=== PATIENT | male | born 1980 | race African-American/Black ===

== ENCOUNTER 2020-03-25 20:26 | Emergency (ER) | payer BC ==
[2020-03-25 20:32] VITALS: TEMP 98.5
[2020-03-25] MEDS ORDERED: PROPARACAINE 0.5% OPHTH DROPS 15 ML BTL RIGHT EYE STA (20:33)
[2020-03-25] MEDS: FLUORESCEIN STRIPS 1 MG STRIP BOTH EYES STA (20:41)
--- NOTE | 2020-03-25 20:59 | ED ---
Eye Problem HPI - General Source: patient, RN notes reviewed, old records reviewed Mode of arrival: ambulatory Limitations: no limitations <Kat Chawla - Last Filed: 03/25/20 21:33> <John Hawk - Last Filed: 03/25/20 21:55> - General Chief complaint: Eye Problems Stated complaint: Object in right eye Time Seen by Provider: 03/25/20 20:33 - History of Present Illness Initial comments: Patient is a 40-year-old male who presents emergency department today with chief complaint of wood stuck within his right eye. Patient reports that he is pulling up floor reports and a splinter flew into his eye. Patient states that he initially had pain but he thought it came out. When he returned home his noticed the piece of wood still stuck in the eye. Patient denies any significant pain with eye movements. Patient states that his visual acuity seems to be intact. The Patient states that he did not attempt to remove the wood but when he was informed of this he came directly to the emergency room. (Kat Chawla) - Related Data Home Medications Medication Instructions Recorded Confirmed Atorvastatin [Lipitor] 10 mg PO DAILY 12/04/14 01/11/15 Previous Rx's Medication Instructions Recorded Cephalexin [Keflex] 500 mg PO Q8HR #28 cap 03/25/20 Ciprofloxacin Ophth Soln [Cipro 1 drops RIGHT EYE Q4HR #1 bottle 03/25/20 Ophth Soln] Allergies Allergy/AdvReac Type Severity Reaction Status Date / Time No Known Allergies Allergy Verified 03/25/20 20:32 Review of Systems ROS Other: All systems not noted in ROS Statement are negative. <Kat Chawla - Last Filed: 03/25/20 21:33> ROS Other: All systems not noted in ROS Statement are negative. <John Hawk - Last Filed: 03/25/20 21:55> ROS Statement: Those systems with pertinent positive or pertinent negative responses have been documented in the HPI. Past Medical History Past Medical History: Hyperlipidemia Additional Past Medical History / Comment(s): history of chest pain with stress tests down last about 2009 History of Any Multi-Drug Resistant Organisms: None Reported Past Surgical History: No Surgical Hx Reported Past Psychological History: No Psychological Hx Reported Smoking Status: Never smoker Past Alcohol Use History: Daily, Occasional Past Drug Use History: None Reported <aKt Chawla - Last Filed: 03/25/20 21:33> General Exam Limitations: no limitations General appearance: alert, in no apparent distress Head exam: Present: atraumatic, normocephalic, normal inspection Eye exam: Present: EOMI, conjunctival injection (Napoles has conjunctival injection over the right eye. There is evidence of an obvious foreign body between the pupil and sclera at the 5 o'clock position. Patient has a teardrop shaped pupil pointing in direction of retained piece of wood. ), other (Visual acuity is 20/15 bilaterally. 20/25 on the right eye. 20/20 on the left eye. Patient wears glasses only for reading. ). Absent: normal appearance, PERRL (Patient has teardrop shaped pupil on the right eye with the points of the teardrops towards the 5 o'clock position.), scleral icterus, periorbital swelling ENT exam: Present: normal exam, mucous membranes moist Neck exam: Present: normal inspection. Absent: tenderness, meningismus, lymphadenopathy Respiratory exam: Present: normal lung sounds bilaterally. Absent: respiratory distress, wheezes, rales, rhonchi, stridor Cardiovascular Exam: Present: regular rate, normal rhythm, normal heart sounds. Absent: systolic murmur, diastolic murmur, rubs, gallop, clicks GI/Abdominal exam: Present: soft, normal bowel sounds. Absent: distended, tenderness, guarding, rebound, rigid Extremities exam: Present: normal inspection, full ROM, normal capillary refill. Absent: tenderness, pedal edema, joint swelling, calf tenderness Back exam: Present: normal inspection Neurological exam: Present: alert, oriented X3, CN II-XII intact Psychiatric exam: Present: normal affect, normal mood Skin exam: Present: warm, dry, intact, normal color. Absent: rash <Kat Chawla - Last Filed: 03/25/20 21:33> - General Exam Comments Initial Comments: 40-year-old male. Alert and oriented 3. Resting in bed. No distress. (Kat Chawla) Course <Kat Chawla - Last Filed: 03/25/20 21:33> <John Hawk - Last Filed: 03/25/20 21:55> Vital Signs 03/25/20 20:27 Temperature 98.5 F Pulse Rate 68 Respiratory 18 Rate Blood Pressure 141/78 O2 Sat by Pulse 98 Oximetry - Reevaluation(s) Reevaluation #1: 03/25/20 20:58 Patient is refusing tetanus shot. Patient states case is discussed with Dr. NOLAND and he evaluated Patient concern for a globe rupture due to teardrop shaped pupil and positive Juan Carlos sign. Patient had I she'll place. Currently awaiting call for osteologist Dr. Beltran (Kat Chawla) Reevaluation #2: 03/25/20 21:19 I discussed case with Dr. Ramos he recommended transfer to [facility]. I went to discuss the transfer with the Patient and he is reluctant to transfer. (Kat Chawla) Reevaluation #3: 03/25/20 21:54 PA supervision: I proceeded [id number] evaluation the patient he did present with complaints of right eye pain and did appear on exam to have evidence of a retained foreign body as well as irregular pupil which would indicate a global rupture. Ophthalmology on-call suggested outpatient follow-up at [facility]. Patient is refusing at this time. He does demo nstrate decision making capacity but does not want to go today. He will be given antibiotics as well as instructions on how to get to that facility. He will be discharged AGAINST MEDICAL ADVICE. (John Hawk) Medical Decision Making <Kat Chwala - Last Filed: 03/25/20 21:33> - Medical Decision Making 40-year-old male presents to return today with complaints of foreign body within the right eye. Patient had evidence of concern for globe rupture with a teardrop shaped pupil of the 5 o'clock position with a piece of wood within the eye. I discussed case promptly with ophthalmology and they recommended transfer to [facility]. Patient was then refusing transfer stating he doesn't want to go and doesnt want to worry his . I have multiple providers tried to convince the Patient to be transferred to a higher level care facility however he continues to refuse. Refuse tetanus vaccine. I discussed the risks of losing his vision and having severe infection with the eyeball. is in the right state of mind, and is coherent to make this decision. Patient states that he understands his risks and prefers to go home. I did discuss with Patient he can drive to [facility] as recommendation for further care. Patient will be given antibiotics and drops for infection prophylaxis despite leaving AGAINST MEDICAL ADVICE. (Kat Chawla) Disposition Is patient prescribed a controlled substance at d/c from ED?: No Time of Disposition: 21:39 <Kat Chawla - Last Filed: 03/25/20 21:33> <John Hawk - Last Filed: 03/25/20 21:55> Clinical Impression: Eye foreign body, Ruptured globe Disposition: Left Against Medical Advice Condition: Stable Instructions (If sedation given, give patient instructions): Eye Foreign Body (ED) Additional Instructions: You're leaving the hospital AGAINST MEDICAL ADVICE. I would recommend be transferred to a higher level of care such as [facility] for eye surgery tonight. you have been given the directions. Avoid pressure on the eyeball. You understand you are taking the have the risk of losing your vision and severe infection within the right eye. Patient can take antibiotic prescribed. Prescriptions: Ciprofloxacin Ophth Soln [Cipro Ophth Soln] 1 drops RIGHT EYE Q4HR #1 bottle Cephalexin [Keflex] 500 mg PO Q8HR #28 cap Referrals: Natalie Mcguire MD [Primary Care Provider] - 1-2 days
[2020-03-25 21:55] VITALS: BP 135/81; PULSE 83; RESP 14
== END 2020-03-25 21:50 | disposition left against medical advice (07) ==
LOC: EC 20:26
DX: S05.31XA Ocular laceration without prolapse or loss of intraocular tissue, right eye, initial encounter (principal); E78.5 Hyperlipidemia, unspecified; Z79.899 Other long term (current) drug therapy; Z53.29 Procedure and treatment not carried out because of patient's decision for other reasons; W45.8XXA Other foreign body or object entering through skin, initial encounter; Y93.89 Activity, other specified; Y92.009 Unspecified place in unspecified non-institutional (private) residence as the place of occurrence of the external cause
CPT/HCPCS: 99283

== ENCOUNTER 2020-05-22 13:45 | Emergency (ER) | payer BC ==
--- NOTE | 2020-05-22 14:21 | ED ---
Extremity Problem HPI - General Chief complaint: Extremity Problem,Nontraumatic Stated complaint: Lft arm pain Time Seen by Provider: 05/22/20 14:01 Source: patient, RN notes reviewed Mode of arrival: ambulatory Limitations: no limitations - History of Present Illness Initial comments: 40-year-old male presents emergency Department with chief complaint of pain, swelling to left forearm. Patient had an IV 2 months ago states that shortly after he developed redness swelling. Patient states that the redness is gone away but states it's bruise, swollen he can feel some commands arm. Patient denies any numbness or tingling no weakness. No history of PE or DVT. - Related Data Home Medications Medication Instructions Recorded Confirmed Atorvastatin [Lipitor] 10 mg PO DAILY 12/04/14 01/11/15 Previous Rx's Medication Instructions Recorded Cephalexin [Keflex] 500 mg PO Q8HR #28 cap 03/25/20 Ciprofloxacin Ophth Soln [Cipro 1 drops RIGHT EYE Q4HR #1 bottle 03/25/20 Ophth Soln] Allergies Allergy/AdvReac Type Severity Reaction Status Date / Time No Known Allergies Allergy Verified 05/22/20 13:51 Review of Systems ROS Statement: Those systems with pertinent positive or pertinent negative responses have been documented in the HPI. ROS Other: All systems not noted in ROS Statement are negative. Past Medical History Past Medical History: Hyperlipidemia Additional Past Medical History / Comment(s): history of chest pain with stress tests down last about 2009 History of Any Multi-Drug Resistant Organisms: None Reported Past Surgical History: No Surgical Hx Reported Past Psychological History: No Psychological Hx Reported Smoking Status: Never smoker Past Alcohol Use History: Daily, Occasional Past Drug Use History: None Reported General Exam Limitations: no limitations General appearance: alert, in no apparent distress Head exam: Present: atraumatic, normocephalic, normal inspection Eye exam: Present: normal appearance, PERRL, EOMI. Absent: scleral icterus, conjunctival injection, periorbital swelling Respiratory exam: Present: normal lung sounds bilaterally. Absent: respiratory distress, wheezes, rales, rhonchi, stridor Cardiovascular Exam: Present: regular rate, normal rhythm, normal heart sounds. Absent: systolic murmur, diastolic murmur, rubs, gallop, clicks Extremities exam: Present: other (Left forearm there is ecchymosis, swelling noted just distal to the antecubital fossa, radial pulses equal bilaterally, cap refill less than 2 seconds.) Course Vital Signs 05/22/20 13:48 Temperature 98.5 F Pulse Rate 67 Respiratory 20 Rate Blood Pressure 163/82 O2 Sat by Pulse 100 Oximetry Medical Decision Making - Medical Decision Making Ultrasound shows evidence of superficial thrombophlebitis. Patient will be started on anti-inflammatories, warm compresses. Patient has no evidence of DVT. Patient be discharged in stable condition return parameters were discussed.. case discussed with Disposition Clinical Impression: Superficial thrombophlebitis of left upper extremity Disposition: HOME SELF-CARE Condition: Stable Instructions (If sedation given, give patient instructions): Superficial Thrombophlebitis (ED) Additional Instructions: Apply warm compresses as directed and take anti-inflammatories as directed.Please return to the Emergency Department if symptoms worsen or any other concerns. Is patient prescribed a controlled substance at d/c from ED?: No Referrals: Natalie Mcguire MD [Primary Care Provider] - 1-2 days Time of Disposition: 15:16
--- NOTE | 2020-05-22 14:52 | US ---
EXAMINATION TYPE: US venous doppler duplex UE LT DATE OF EXAM: 05/22/2020 COMPARISON: NONE CLINICAL HISTORY: pain. Pain in left forearm at IV site from previous surgery 2 months ago SIDE PERFORMED: Left Left Arm: Appears negative for DVT Scanned left forearm at patient's area of concern: thrombus seen within superficial vessel IMPRESSION: No evidence for DVT at this time.
[2020-05-22 15:24] VITALS: BP 119/85; PULSE 57; RESP 16; TEMP 98
== END 2020-05-22 15:24 | disposition home or self-care (01) ==
LOC: EC 13:45
DX: I80.8 Phlebitis and thrombophlebitis of other sites (principal); E78.5 Hyperlipidemia, unspecified; Z79.899 Other long term (current) drug therapy
CPT/HCPCS: 99283

== ENCOUNTER → 2020-06-04 | Outpatient (CLI) | payer BC | END | disposition home or self-care (01) | LOC: LABWHC1 15:39 | PROVIDERS: ATTEND Emergency Medicine | DX: Z20.822 Contact with and (suspected) exposure to COVID-19 (principal) | CPT/HCPCS: U0003; C9803 ==

== ENCOUNTER 2022-04-22 00:17 | Emergency (ER) | payer OTHER ==
[2022-04-22 00:25] VITALS: TEMP 97.4
[2022-04-22] MEDS ORDERED: ONDANSETRON 4 MG/2 ML VIAL IVP STA (00:35)
[2022-04-22] MEDS ORDERED: SODIUM CHLORIDE 0.9% 1,000 ML IV STA ×2 (00:35)
[2022-04-22] MEDS ORDERED: PANTOPRAZOLE 40 MG/10 ML VIAL IVP STA (00:35)
[2022-04-22] MEDS ORDERED: MORPHINE SULFATE 4 MG/ML SYRINGE IVP STA (00:36)
--- NOTE | 2022-04-22 00:36 | ED ---
Abdominal Pain HPI - General Chief Complaint: Abdominal Pain Stated Complaint: Abdominal pain Time Seen by Provider: 04/22/22 00:35 Source: patient, RN notes reviewed, old records reviewed Mode of arrival: ambulatory Limitations: no limitations - History of Present Illness Initial Comments: This 42-year-old male to the emergency department for evaluation positive for bowel pain. Positive nausea no current active vomiting of travel show sick contacts no fevers. Patient does admit to one episode of vomiting no abdominal pain no travel history no sick contacts no fevers. No recent surgery or other complaints. Symptoms throughout the day progressively worsening MD Complaint: abdominal pain -: hour(s) Location: diffuse Radiation: epigastric, suprapubic Migration to: no migration, epigastric, suprapubic Severity: moderate Severity scale (1-10): 4 Quality: cramping, aching Consistency: intermittent Improves With: nothing Worsens With: nothing Context: other (0) Associated Symptoms: nausea Treatments Prior to Arrival: other (0) - Related Data Home Medications Medication Instructions Recorded Confirmed Atorvastatin [Lipitor] 10 mg PO DAILY 12/04/14 01/11/15 Previous Rx's Medication Instructions Recorded Cephalexin [Keflex] 500 mg PO Q8HR #28 cap 03/25/20 Ciprofloxacin Ophth Soln [Cipro 1 drops RIGHT EYE Q4HR #1 bottle 03/25/20 Ophth Soln] Allergies Allergy/AdvReac Type Severity Reaction Status Date / Time No Known Allergies Allergy Verified 04/22/22 00:22 Review of Systems ROS Statement: Those systems with pertinent positive or pertinent negative responses have been documented in the HPI. ROS Other: All systems not noted in ROS Statement are negative. Past Medical History Past Medical History: Hyperlipidemia Additional Past Medical History / Comment(s): history of chest pain with stress tests down last about 2009 History of Any Multi-Drug Resistant Organisms: None Reported Past Surgical History: No Surgical Hx Reported Past Psychological History: No Psychological Hx Reported Smoking Status: Never smoker Past Alcohol Use History: Daily Past Drug Use History: None Reported General Exam Limitations: no limitations General appearance: alert, in no apparent distress Head exam: Present: atraumatic, normocephalic, normal inspection Eye exam: Present: normal appearance, PERRL, EOMI. Absent: scleral icterus, conjunctival injection, periorbital swelling ENT exam: Present: normal exam, mucous membranes moist Neck exam: Present: normal inspection. Absent: tenderness, meningismus, lymphadenopathy Respiratory exam: Present: normal lung sounds bilaterally. Absent: respiratory distress, wheezes, rales, rhonchi, stridor Cardiovascular Exam: Present: regular rate, normal rhythm, normal heart sounds. Absent: systolic murmur, diastolic murmur, rubs, gallop, clicks GI/Abdominal exam: Present: soft, normal bowel sounds. Absent: distended, tenderness, guarding, rebound, rigid Extremities exam: Present: normal inspection, full ROM, normal capillary refill. Absent: tenderness, pedal edema, joint swelling, calf tenderness Back exam: Present: normal inspection Neurological exam: Present: alert, oriented X3, CN II-XII intact Psychiatric exam: Present: normal affect, normal mood Skin exam: Present: warm, dry, intact, normal color. Absent: rash Course Vital Signs 04/22/22 04/22/22 00:22 03:00 Temperature 97.4 F L Pulse Rate 95 108 H Respiratory 18 16 Rate Blood Pressure 138/99 136/101 O2 Sat by Pulse 100 99 Oximetry - Reevaluation(s) Reevaluation #1: 04/22/22 Medical record is reviewed Reevaluation #2: 04/22/22 Patient symptoms are improved here in the ER Reevaluation #3: 04/22/22 Patient informed results and questions answered Reevaluation #4: 04/22/22 Differential Abdominal Pain Men: Appendicitis, cholecystitis, diverticulosis, ischemic bowel, pancreatitis, hepatitis, UTI, gastroenteritis, AAA, incarcerated hernia, bowel obstruction, constipation, inflammatory bowel, hepatitis, peptic ulcer disease, splenic infarction, perforated viscus, testicular torsion, this is not meant to be an all-inclusive list Reevaluation #5: 04/22/22 Was pt. sent in by a medical professional or institution? @ -no Did you speak to anyone other than the patient for history? @ -no Did you review nursing and triage notes? @ -agree Were old charts reviewed? @ -no Differential Diagnosis? @ -no EKG interpreted by me (3pts min.)? @ -[none] X-rays interpreted by me (1pt min.)? @ -[none] CT interpreted by me (1pt min.)? @ -[none] U/S interpreted by me (1pt. min.)? @ -[none] What testing was considered but not performed? (CT, X-rays, U/S, labs)? Why? @ no What meds were considered but not given? Why? @ -[none] Did you discuss the management of the patient with other professionals? @ -no Did you reconcile home meds? @ -[none] Was smoking cessation discussed for >3mins.? @ -[none] Was critical care preformed (if so, how long)? @ -[none] Were there social determinants of health that impacted care today? How? (Homelessness, low income, unemployed, alcoholism, drug addiction, trans portation, low edu. Level, literacy, decrease access to med. care, long term, rehab)? @ -no Was there de-escalation of care discussed even if they declined? (Discuss DNR or withdrawal of care, Hospice)? @ -no What co-morbidities impacted this encounter? (DM, HTN, Smoking, COPD, CAD, Cancer, CVA, Hep., AIDS, mental health diagnosis, sleep apnea, morbid obesity)? @ -no Was patient admitted / discharged? @ -dc Undiagnosed new problem with uncertain prognosis? @ -[none] Drug Therapy requiring intensive monitoring for toxicity (Heparin, Nitro, Insulin, Cardizem)? @ -[none] Were any procedures done? @ -[none] Diagnosis/symptom? @ -[default] Acute, or Chronic, or Acute on Chronic? @ -[default] Uncomplicated (without systemic symptoms) or Complicated (systemic symptoms)? @ -[default] Side effects of treatment? @ -[none] Exacerbation, Progression, or Severe Exacerbation] @ -[no] Poses a threat to life or bodily function? @ -[no] 04/30/22 05:59 Medical Decision Making - Medical Decision Making 42 male to the emergency department for evaluation of nonspecific abdominal pain. No acute cause found and patient can be discharged - Lab Data Result diagrams: 04/22/22 00:45 04/22/22 00:45 Lab Results 04/22/22 04/22/22 04/22/22 Range/Units 00:45 00:45 00:45 WBC 6.7 (3.8-10.6) k/uL RBC 5.38 (4.30-5.90) m/uL Hgb 16.6 (13.0-17.5) gm/dL Hct 47.4 (39.0-53.0) % MCV 88.1 (80.0-100.0) fL MCH 30.9 (25.0-35.0) pg MCHC 35.1 (31.0-37.0) g/dL RDW 12.5 (11.5-15.5) % Plt Count 223 (150-450) k/uL MPV 7.4 Neutrophils % 45 % Lymphocytes % 42 % Monocytes % 7 % Eosinophils % 1 % Basophils % 1 % Neutrophils # 3.0 (1.3-7.7) k/uL Lymphocytes # 2.8 (1.0-4.8) k/uL Monocytes # 0.5 (0-1.0) k/uL Eosinophils # 0.1 (0-0.7) k/uL Basophils # 0.0 (0-0.2) k/uL Sodium 139 (137-145) mmol/L Potassium 3.7 (3.5-5.1) mmol/L Chloride 101 (98-107) mmol/L Carbon Dioxide 25 (22-30) mmol/L Anion Gap 13 mmol/L BUN 11 (9-20) mg/dL Creatinine 0.86 (0.66-1.25) mg/dL Est GFR (CKD-EPI)AfAm >90 (>60 ml/min/1.73 sqM) Est GFR (CKD-EPI)NonAf >90 (>60 ml/min/1.73 sqM) Glucose 93 (74-99) mg/dL Lactic Ac Sepsis Rflx Plasma Lactic Acid Chirag 2.6 H* (0.7-2.0) mmol/L Calcium 9.7 (8.4-10.2) mg/dL Total Bilirubin 0.7 (0.2-1.3) mg/dL AST 130 H (17-59) U/L ALT 262 H (4-49) U/L Alkaline Phosphatase 69 (38-126) U/L Troponin I (0.000-0.034) ng/mL Total Protein 8.4 H (6.3-8.2) g/dL Albumin 5.0 (3.5-5.0) g/dL Amylase 96 (30-110) U/L Lipase 201 (23-300) U/L 01/03/23 01/03/23 Range/Units 00:45 01:24 WBC (3.8-10.6) k/uL RBC (4.30-5.90) m/uL Hgb (13.0-17.5) gm/dL Hct (39.0-53.0) % MCV (80.0-100.0) fL MCH (25.0-35.0) pg MCHC (31.0-37.0) g/dL RDW (11.5-15.5) % Plt Count (150-450) k/uL MPV Neutrophils % % Lymphocytes % % Monocytes % % Eosinophils % % Basophils % % Neutrophils # (1.3-7.7) k/uL Lymphocytes # (1.0-4.8) k/uL Monocytes # (0-1.0) k/uL Eosinophils # (0-0.7) k/uL Basophils # (0-0.2) k/uL Sodium (137-145) mmol/L Potassium (3.5-5.1) mmol/L Chloride (98-107) mmol/L Carbon Dioxide (22-30) mmol/L Anion Gap mmol/L BUN (9-20) mg/dL Creatinine (0.66-1.25) mg/dL Est GFR (CKD-EPI)AfAm (>60 ml/min/1.73 sqM) Est GFR (CKD-EPI)NonAf (>60 ml/min/1.73 sqM) Glucose (74-99) mg/dL Lactic Ac Sepsis Rflx Y Plasma Lactic Acid Chirag (0.7-2.0) mmol/L Calcium (8.4-10.2) mg/dL Total Bilirubin (0.2-1.3) mg/dL AST (17-59) U/L ALT (4-49) U/L Alkaline Phosphatase (38-126) U/L Troponin I <0.012 (0.000-0.034) ng/mL Total Protein (6.3-8.2) g/dL Albumin (3.5-5.0) g/dL Amylase (30-110) U/L Lipase (23-300) U/L - Radiology Data Radiology results: report reviewed (CT chest CT of the abdomen and pelvis negative for acute disease), image reviewed Disposition Clinical Impression: Abdominal pain Disposition: HOME SELF-CARE Condition: Undetermined Instructions (If sedation given, give patient instructions): Abdominal Pain (ED) Is patient prescribed a controlled substance at d/c from ED?: No Referrals: Nonstaff,Physician [REFERRING] - 1-2 days
[2022-04-22 01:05] LABS: Basophils % (A) 1 %; Eosinophils # (A) 0.1 k/uL (0-0.7); Eosinophils % (A) 1 %; HCT 47.4 % (39.0-53.0); HGB 16.6 gm/dL (13.0-17.5); Lymphocytes # (A) 2.8 k/uL (1.0-4.8); Lymphocytes % (A) 42 %; MCH 30.9 pg (25.0-35.0); MCHC 35.1 g/dL (31.0-37.0); MCV 88.1 fL (80.0-100.0); Mean Platelet Volume 7.4; Monocytes # (A) 0.5 k/uL (0-1.0); Monocytes % (A) 7 %; Neutrophils % (A) 45 %; Platelet Count 223 k/uL (150-450); RBC 5.38 m/uL (4.30-5.90); RDW 12.5 % (11.5-15.5); WBC 6.7 k/uL (3.8-10.6)
[2022-04-22 01:19] LABS: ALT 262 U/L (4-49); AST 130 U/L (17-59); African American GFR (CKD) >90 (>60 ml/min/1.73 sqM); Alkaline Phosphatase 69 U/L (38-126); Amylase 96 U/L (30-110); Anion Gap 13 mmol/L; Blood Urea Nitrogen 11 mg/dL (9-20); Calcium 9.7 mg/dL (8.4-10.2); Carbon Dioxide 25 mmol/L (22-30); Chloride 101 mmol/L (98-107); Glucose 93 mg/dL (74-99); Lipase 201 U/L (23-300); Non-African American GFR(CKD) >90 (>60 ml/min/1.73 sqM); Potassium 3.7 mmol/L (3.5-5.1); Sodium 139 mmol/L (137-145); Total Bilirubin 0.7 mg/dL (0.2-1.3); Total Protein 8.4 g/dL (6.3-8.2)
--- NOTE | 2022-04-22 02:04 | CT ---
EXAMINATION TYPE: CT angio chest DATE OF EXAM: 04/22/2022 COMPARISON: None HISTORY: upper abd pain CT DLP: 304.1 mGycm Automated exposure control for dose reduction was used. CONTRAST: Performed with IV Contrast, patient injected with 100 mL of Isovue 370. There are Three-D postprocessed images. There is no mediastinal adenopathy. There are no hilar masses. There is normal contrast opacification of the pulmonary arteries. No filling defect. Thoracic aorta is intact. No aneurysm or dissection. Heart size is normal. No pericardial effusion. No evidence of pleural effusion. The lungs are clear o f consolidation. No evidence of a pulmonary mass. The thoracic spine is intact. There is fatty infiltration of the liver. IMPRESSION: No evidence of pulmonary embolism. Fatty liver.
--- NOTE | 2022-04-22 02:13 | CT ---
EXAMINATION TYPE: CT abdomen pelvis w con DATE OF EXAM: 04/22/2022 COMPARISON: None HISTORY: upper abd pain CT DLP: 681 mGycm Automated exposure control for dose reduction was used. CONTRAST: Performed with IV Contrast, patient injected with 100 mL of Isovue 370. Images obtained from the diaphragm to the floor the pelvis with the IV contrast. The lung bases are clear. No pleural effusion. Heart size is normal. No pericardial effusion. There is hypodensity throughout the liver related to fatty infiltration. Spleen is intact. No pancrea tic mass. Gallbladder appears normal. The bile duct are not dilated. Stomach is intact. There is no adrenal mass. Kidneys show satisfactory contrast opacification. No hydronephrosis. There is 1 cm cortical cyst lateral left kidney. No retroperitoneal adenopathy. The ureters are not dilated . Delayed images show normal renal excretion. The bladder distends smoothly. No inguinal hernia. No f ree fluid in the pelvis. No pelvic mass. Appendix not clearly seen. No sign of thickened appendix. There is no mesenteric edema. No ascites or free air. No sign of a bowel obstruction. The lumbar vert ebrae have normal spacing and alignment. Posterior elements are intact. No compression fracture. The bony pelvis is intact. The hip joints are intact. IMPRESSION: Fatty infiltration of the liver. No acute abnormality in the abdomen pelvis.
[2022-04-22 03:24] VITALS: BP 136/101; PULSE 108; RESP 16
== END 2022-04-22 03:00 | disposition home or self-care (01) ==
LOC: EC 00:17
DX: R10.9 Unspecified abdominal pain (principal); E78.5 Hyperlipidemia, unspecified; Z79.899 Other long term (current) drug therapy
CPT/HCPCS: 36415; 80053; 82150; 83605; 83690; 84484; 85025; 71275; 74177; 99284; 96375 ×2; 96374; 96361 ×2; J2270; J2405; C9113; Q9967